=== PATIENT | female | born 1975 | race Caucasian/White ===

== ENCOUNTER 2016-04-17 19:27 | Emergency (ER) | payer SELFPAY ==
[~2016-04-17] VITALS: Wt 72.5 kg
[~2016-04-17 19:27] MED LIST: BACTDS PO; HYDR-906 PO; IBUP800T25 PO; ONDA4TAB8 PO
== END 2016-04-17 22:34 | disposition left against medical advice (07) ==
LOC: FTE 19:27
DX: Z53.21 Procedure and treatment not carried out due to patient leaving prior to being seen by health care provider (principal)

== ENCOUNTER 2016-07-26 16:32 | Emergency (ER) | payer OTHER ==
[~2016-07-26] VITALS: Ht 157.5 cm; Wt 72.5 kg
[2016-07-26 16:38] VITALS: Ht 157.5 cm; Wt 72.5 kg
[2016-07-26 19:24] LABS: URINE BLOOD (Dip) POC Trace-lysed (NEGATIVE)
[2016-07-26 19:40] LABS: URINE BLOOD (Dip) POC Trace-lysed (NEGATIVE)
[2016-07-26] MEDS ORDERED: PHEN-538 PO (19:44)
[2016-07-26] MEDS ORDERED: CEPH-443 PO (19:44)
--- NOTE | 2016-07-26 19:48 | ERD ---
ER Documentation Chief Complaint Date/Time DATE: 07/26/16 TIME: 19:47 Chief Complaint painful urination , fever , chills since yesterday HPI This 41-year-old female presents with dysuria and suprapubic abdominal pain and subjective tactile fevers and chills starting yesterday. She denies vomiting or flank pain. She has a history of frequent UTIs, last treated 2 months ago. She denies any localized abdominal pain to the right or left upper abdominal pain ROS All systems reviewed and are negative except as per history of present illness. Medications Home Meds Active Scripts Phenazopyridine Hcl* (Pyridium*) 200 Mg Tab, 200 MG PO TID Y for URINARY PAIN, # 6 TAB Prov:ISABEL SANDHU MD 07/26/16 Cephalexin* (Keflex*) 500 Mg Capsule, 500 MG PO QID for 7 Days, CAP Prov:ISABEL SANDHU MD 07/26/16 Ondansetron Hcl* (Zofran*) 4 Mg Tablet, 4 MG PO Q8H Y for NAUSEA AND/OR VOMITING , #10 TAB Prov:KATLIN BISHOP DO 02/24/16 Ibuprofen* (Motrin*) 800 Mg Tab, 800 MG PO Q8 Y for PAIN AND OR ELEVATED TEMP, # 30 TAB Prov:KATLIN BISHOP DO 02/24/16 Hydrocodone/Acetaminophen ([place] 5-325 Tablet) 1 Each Tablet, 1 TAB PO Q6H Y for PAIN, #7 TAB Prov:KATLIN BISHOP DO 02/24/16 Sulfamethoxazole-Trimethoprim* (Bactrim* DS) 800-160 Mg Tab, 1 TAB PO BID for 14 Days, TAB Prov:KATLIN BISHOP DO 02/24/16 Allergies Allergies: Coded Allergies: No Known Allergy (Unverified , 01/23/16) PMhx/Soc History of Surgery: Yes (bilateral breast implants, , right kidney stone removal) Anesthesia Reaction: No Hx Neurological Disorder: No Hx Respiratory Disorders: No Hx Cardiac Disorders: No Hx Psychiatric Problems: No Hx Miscellaneous Medical Probl: Yes (right kidney stone(2003), UTI) Hx Alcohol Use: No Hx Substance Use: No Hx Tobacco Use: No Smoking Status: Never smoker Physical Exam Vitals Vital Signs Date Time Temp Pulse Resp B/P Pulse Ox O2 Delivery O2 Flow Rate FiO2 07/26/16 16:38 97.8 81 16 125/78 99 Physical Exam Const: [] Alert, [id number]. Head: Atraumatic Eyes: Normal Conjunctiva ENT: Normal External Ears, Nose and Mouth. Neck: Full range of motion..~ No meningismus. Resp: Clear to auscultation bilaterally Cardio: Regular rate and rhythm, no murmurs Abd: Soft, non tender, non distended. Normal bowel sounds Skin: No petechiae or rashes Back: No midline or flank tenderness Ext: No cyanosis, or edema Neur: Awake and alert Psych: Normal Mood and Affect Results 24 hrs Laboratory Tests Test 07/26/16 19:25 07/26/16 19:41 Bedside Urine pH (LAB) 7.0 7.0 Bedside Urine Protein (LAB) 1+ 1+ Bedside Urine Glucose (UA) Negative Negative Bedside Urine Ketones (LAB) Negative Negative Bedside Urine Blood Trace-lysed Trace-lysed Bedside Urine Nitrite (LAB) Positive Positive Bedside Urine Leukocyte Esterase (L 3+ 3+ Current Medications Medications (Trade) Dose Ordered Sig/Dedrick Route PRN Reason Start Time Stop Time Status Last Admin Dose Admin Ceftriaxone Sodium (Rocephin) 1 gm ONCE ONCE IM 07/26/16 20:00 07/26/16 20:01 UNV Lidocaine (Xylocaine 1% (Mdv) 20 ml) 20 ml ONCE ONCE SC 07/26/16 20:00 07/26/16 20:01 UNV Ibuprofen (Motrin) 600 mg ONCE ONCE PO 07/26/16 20:00 07/26/16 20:01 UNV Phenazopyridine HCl (Pyridium) 200 mg ONCE ONCE PO 07/26/16 20:00 07/26/16 20:01 UNV Procedures/MDM Urine shows positive nitrates, leukocytes and hemoglobin. HCG is negative. Patient was given Rocephin 1 g IM. Patient presents with acute cystitis but given the chills possible subjective fever which treated with Keflex for 7 days and Pyridium instructions for fluids and ibuprofen. Patient shows no current signs of sepsis and should be amenable to outpatient treatment. She should however return for fevers, vomiting, flank pain, abdominal pain, new worsening symptoms. The patient was stable with no new complaints during the ER course. Clinically, there is no current evidence to suggest meningitis, sepsis, acute abdomen, pneumonia, acute coronary syndrome, pulmonary embolism, or any other emergent condition appearing to require further evaluation or hospitalization. The patient should certainly return for any new or worsening symptoms per the aftercare instructions. They should otherwise follow-up with her primary care doctor for reevaluation this week. Departure Diagnosis: Primary Impression: UTI (urinary tract infection) Urinary tract infection type: acute cystitis Hematuria presence: without hematuria Qualified Code: N30.00 - Acute cystitis without hematuria Condition: Stable Patient Instructions: Understanding Urinary Tract Infections (UTIs) Additional Instructions: Drink plenty of fluids at home. Recheck for fevers, vomiting, new worsening symptoms. ISABEL SANDHU MD July 26, 2016 19:48
[2016-07-26] MEDS ORDERED: PHENAZOPYRIDINE 100 MG TAB PO ONE (20:00)
[2016-07-26] MEDS ORDERED: IBUPROFEN 600 MG TAB PO ONE (20:00)
[2016-07-26] MEDS ORDERED: LIDOCAINE 1% (MDV) 20 ML INJ SC ONE (20:00)
[2016-07-26] MEDS ORDERED: CEFTRIAXONE 1 GM INJ IM ONE (20:00)
[2016-07-26 21:06] VITALS: BP 120/84; PULSE 78; RESP 18; TEMP 98.3
== END 2016-07-26 21:07 | disposition home or self-care (01) ==
LOC: FTE 16:32
DX: N30.00 Acute cystitis without hematuria (principal)
CPT/HCPCS: 81003; 87086; 96372; J0696; Z7502; Z7610

== ENCOUNTER 2016-08-25 13:49 | Emergency (ER) | payer OTHER ==
[~2016-08-25] VITALS: Ht 162.6 cm; Wt 73.0 kg
[~2016-08-25 13:49] MED LIST changes: +CEPH-443 PO; +PHEN-538 PO
[2016-08-25 14:01] VITALS: Ht 162.6 cm; Wt 73.0 kg
[2016-08-25 15:58] LABS: URINE BLOOD (Dip) POC Trace-intact (NEGATIVE)
[2016-08-25 16:34] LABS: ADD UMIC YES; URINE BILIRUBIN (Dip) NEGATIVE (NEGATIVE); URINE BLOOD (Dip) NEGATIVE (NEGATIVE); URINE GLUCOSE (Dip) NEGATIVE (NEGATIVE); URINE KETONES (Dip) NEGATIVE (NEGATIVE); URINE LEUKOCYTE ESTERASE (Dip) 1+ (NEGATIVE); URINE NITRITE (Dip) NEGATIVE (NEGATIVE); URINE TOTAL PROTEIN (Dip) NEGATIVE (NEGATIVE); URINE UROBILINOGEN (Dip) 0.2 E.U./dL (0.1-1.0)
[2016-08-25 16:35] LABS: URINE COLOR YELLOW (YELLOW)
[2016-08-25 16:45] LABS: BACTERIA,URINE FEW; SQUAMOUS EPITHELIAL CELL,UR MODERATE; URINE RBCS NONE SEEN /HPF (0)
[2016-08-25 18:08] LABS: CALCIUM 8.9 mg/dl (8.4-10.2); CREATININE 1.01 mg/dl (0.44-1.00); POTASSIUM 4.3 mmol/L (3.5-5.1)
[2016-08-25] MEDS ORDERED: TRAM50TA2 PO (18:29)
[2016-08-25] MEDS ORDERED: NITR-58 PO (18:29)
--- NOTE | 2016-08-25 18:41 | ERD ---
ER Documentation Chief Complaint Date/Time DATE: 08/25/16 TIME: 18:39 Chief Complaint PAINFUL URINATION, HPI This is a 41-year-old female complains of dysuria for 3 days. She complains of a burning sensation to the urethra and suprapubic area during the entire voiding process. There is some occasional back pressure when she urinates she says she has multiple kidney stones in the right kidney but no kidney stone attack the past 3 days. She says she was told that her right kidney function is only 20% in her left is normal. She has not checked her renal function in over 10 years. She has no hematuria no fever no nausea vomiting chest pain shortness of breath. ROS All systems reviewed and are negative except as per history of present illness. Medications Home Meds Active Scripts Tramadol HCl (Tramadol HCl) 50 Mg Tablet, 50 MG PO Q6, #20 TAB Prov:REBECCA BARLOW DO 08/25/16 Nitrofurantoin Monohyd Macrocr* (Macrobid*) 100 Mg Capsr, 100 MG PO BID for 14 Days, CAP Prov:REBECCA BARLOW DO 08/25/16 Phenazopyridine Hcl* (Pyridium*) 200 Mg Tab, 200 MG PO TID Y for URINARY PAIN, # 6 TAB Prov:ISABEL SANDHU MD 07/26/16 Cephalexin* (Keflex*) 500 Mg Capsule, 500 MG PO QID for 7 Days, CAP Prov:ISABEL SANDHU MD 07/26/16 Ondansetron Hcl* (Zofran*) 4 Mg Tablet, 4 MG PO Q8H Y for NAUSEA AND/OR VOMITING , #10 TAB Prov:KATLIN BISHOP DO 02/24/16 Ibuprofen* (Motrin*) 800 Mg Tab, 800 MG PO Q8 Y for PAIN AND OR ELEVATED TEMP, # 30 TAB Prov:KATLIN BISHOP DO 02/24/16 Hydrocodone/Acetaminophen ([place] 5-325 Tablet) 1 Each Tablet, 1 TAB PO Q6H Y for PAIN, #7 TAB Prov:KATLIN BISHOP DO 02/24/16 Sulfamethoxazole-Trimethoprim* (Bactrim* DS) 800-160 Mg Tab, 1 TAB PO BID for 14 Days, TAB Prov:KATLIN BISHOP DO 02/24/16 Allergies Allergies: Coded Allergies: No Known Allergy (Unverified , 07/26/16) PMhx/Soc History of Surgery: Yes (bilateral breast implants, , right kidney stone removal) Anesthesia Reaction: No Hx Neurological Disorder: No Hx Respiratory Disorders: No Hx Cardiac Disorders: No Hx Psychiatric Problems: No Hx Miscellaneous Medical Probl: Yes (right kidney stone(2004), UTI) Hx Alcohol Use: No Hx Substance Use: No Hx Tobacco Use: No Smoking Status: Never smoker FmHx Family History: No coronary disease Physical Exam Vitals Vital Signs Date Time Temp Pulse Resp B/P Pulse Ox O2 Delivery O2 Flow Rate FiO2 08/25/16 14:01 98.7 72 18 164/82 98 Physical Exam Const: Well-developed, well-nourished Head: Atraumatic, normocephalic Eyes: Normal Conjunctiva, PERRLA, EOMI, normal sclera, no nystagmus ENT: Normal External Ears, Nose and Mouth, moist mucus membranes. Neck: Full range of motion. No meningismus, no lymphadenopathy. Resp: Clear to auscultation bilaterally, no wheezing, rhonchi, rales Cardio: Regular rate and rhythm, no murmurs, S1 S2 present Abd: Soft, mild suprapubic tenderness, non distended. Normal bowel sounds, no guarding or rebound, no pulsitile abdominal masses or bruits Skin: No petechiae or rashes, no ecchymosis , no maculopapular rash Back: No midline or flank tenderness Ext: No cyanosis, or edema, FROM x 4, normal inspection, neurovascularly intact x 4 Neur: Awake and alert, STR 5/5 x 4, sensation intact x 4, no focal findings, cerebellum intact Psych: Normal Mood and Affect Result Diagram: 08/25/16 1730 Results 24 hrs Laboratory Tests Test 08/25/16 15:18 08/25/16 16:01 08/25/16 17:30 Urine Color YELLOW Urine Clarity CLOUDY Urine pH 7.5 Urine Specific [place] 1.015 Urine Ketones NEGATIVE Urine Nitrite NEGATIVE Urine Bilirubin NEGATIVE Urine Urobilinogen 0.2 E.U./dL Urine Leukocyte Esterase 1+ Urine Microscopic RBC NONE SEEN/HPF Urine Microscopic WBC 5-10/HPF Urine Squamous Epithelial Cells MODERATE Urine Amorphous Urates MANY Urine Bacteria FEW Urine Yeast OCCASIONAL Urine Hemoglobin NEGATIVE Urine Glucose NEGATIVE% Urine Total Protein NEGATIVE Bedside Urine pH (LAB) 7.5 Bedside Urine Protein (LAB) 1+ Bedside Urine Glucose (UA) Negative Bedside Urine Ketones (LAB) Negative Bedside Urine Blood Trace-intact Bedside Urine Nitrite (LAB) Negative Bedside Urine Leukocyte Esterase (L 1+ Sodium Level 142mmol/L Potassium Level 4.3mmol/L Chloride Level 107mmol/L Carbon Dioxide Level 26mmol/L Anion Gap 13 Blood Urea Nitrogen 23mg/dl Creatinine 1.01mg/dl Glucose Level 94mg/dl Calcium Level 8.9mg/dl Procedures/MDM Patient is urinary tract infection. Creatinine is 1.01. Will treat with Macrobid and Ultram will follow up with her primary Departure Diagnosis: Primary Impression: UTI (urinary tract infection) Urinary tract infection type: acute cystitis Hematuria presence: without hematuria Qualified Code: N30.00 - Acute cystitis without hematuria Condition: Stable Patient Instructions: Understanding Urinary Tract Infections (UTIs) REBECCA BARLOW DO Aug 25, 2016 18:41
== END 2016-08-25 19:29 | disposition home or self-care (01) ==
LOC: FTE 13:49
DX: N30.00 Acute cystitis without hematuria (principal)
CPT/HCPCS: 80048; 81001; Z7502; 81003; 99283

== ENCOUNTER 2016-11-04 15:58 | Emergency (ER) | END 2016-11-04 18:05 | disposition home or self-care (01) | DX: R30.0 Dysuria (principal) | CPT/HCPCS: 81003; Z7502; Z7610 ==

== ENCOUNTER 2016-11-16 18:06 | Emergency (ER) | payer OTHER ==
[~2016-11-16] VITALS: Ht 157.5 cm; Wt 73.0 kg
[~2016-11-16 18:06] MED LIST changes: +NITR-58 PO; +TRAM50TA2 PO
[2016-11-16 18:13] VITALS: Ht 157.5 cm; Wt 73.0 kg
[2016-11-16 19:58] LABS: URINE BLOOD (Dip) POC Negative (NEGATIVE)
[2016-11-16] MEDS ORDERED: CIPR500T4 PO (20:15)
[2016-11-16] MEDS ORDERED: PHEN-537 PO (20:15)
--- NOTE | 2016-11-16 23:24 | ERD ---
ER Documentation Chief Complaint Date/Time DATE: 11/16/16 TIME: 23:21 Chief Complaint PAINFUL URINATION , BLOOD IN URINE , RECENTLY RX FOR UTI HPI This patient is a 41-year-old female with past medical history of urinary tract infections, pyelonephritis, presenting to the emergency department with complaints of burning on urination for 10 days. Symptoms are worsening now. She finished her last antibiotic for UTI approximately 10 days ago. She has been drinking cranberry juice with mild relief of symptoms. She had an appointment recently with an [employer] physician who told her she may have mild bladder prolapse and this may be causing her repeated dysuria symptoms. She denies fevers, chills, abdominal pain, dizziness, chest pain, shortness breath, or other symptoms currently. ROS All systems reviewed and are negative except as per history of present illness. Medications Home Meds Active Scripts Phenazopyridine Hcl* (Pyridium*) 100 Mg Tab, 100 MG PO TID Y for URINARY PAIN, # 6 TAB Prov:DELLA AMBROCIO PA-C 11/16/16 Ciprofloxacin Hcl* (Ciprofloxacin Hcl*) 500 Mg Tablet, 500 MG PO BID for 7 Days , #14 TAB Prov:DELLA AMBROCIO PA-C 11/16/16 Phenazopyridine Hcl* (Pyridium*) 200 Mg Tab, 200 MG PO TID Y for URINARY PAIN, # 6 TAB Prov:ISABEL SANDHU MD 11/04/16 Cephalexin* (Keflex*) 500 Mg Capsule, 500 MG PO QID for 5 Days, CAP Prov:ISABEL SANDHU MD 11/04/16 Tramadol HCl (Tramadol HCl) 50 Mg Tablet, 50 MG PO Q6, #20 TAB Prov:REBECCA BARLOW DO 08/25/16 Nitrofurantoin Monohyd Macrocr* (Macrobid*) 100 Mg Capsr, 100 MG PO BID for 14 Days, CAP Prov:REBECCA BARLOW DO 08/25/16 Phenazopyridine Hcl* (Pyridium*) 200 Mg Tab, 200 MG PO TID Y for URINARY PAIN, # 6 TAB Prov:ISABEL SANDHU MD 07/26/16 Cephalexin* (Keflex*) 500 Mg Capsule, 500 MG PO QID for 7 Days, CAP Prov:ISABEL SANDHU MD 07/26/16 Ondansetron Hcl* (Zofran*) 4 Mg Tablet, 4 MG PO Q8H Y for NAUSEA AND/OR VOMITING , #10 TAB Prov:JAVIERKARINKATLIN 02/24/16 Ibuprofen* (Motrin*) 800 Mg Tab, 800 MG PO Q8 Y for PAIN AND OR ELEVATED TEMP, # 30 TAB Prov:EDNAHELENDACIA HARRELL 02/24/16 Hydrocodone/Acetaminophen ([place] 5-325 Tablet) 1 Each Tablet, 1 TAB PO Q6H Y for PAIN, #7 TAB Prov:JAVIERKARINHELENDACIA HARRELL 02/24/16 Sulfamethoxazole-Trimethoprim* (Bactrim* DS) 800-160 Mg Tab, 1 TAB PO BID for 14 Days, TAB Prov:JAVIERKARINHELENDACIA HARRELL 02/24/16 Allergies Allergies: Coded Allergies: No Known Allergy (Unverified , 11/04/16) PMhx/Soc History of Surgery: Yes (bilateral breast implants, , right kidney stone removal) Anesthesia Reaction: No Hx Neurological Disorder: No Hx Respiratory Disorders: No Hx Cardiac Disorders: No Hx Psychiatric Problems: No Hx Miscellaneous Medical Probl: Yes (right kidney stone(2003), UTI) Hx Alcohol Use: No Hx Substance Use: No Hx Tobacco Use: No Smoking Status: Never smoker Physical Exam Vitals Vital Signs Date Time Temp Pulse Resp B/P Pulse Ox O2 Delivery O2 Flow Rate FiO2 11/16/16 18:13 98.1 76 18 138/92 99 Physical Exam Const: Nontoxic, well-appearing female in no acute distress. Head: Atraumatic Eyes: Normal Conjunctiva ENT: Normal External Ears, Nose and Mouth. Neck: Full range of motion..~ No meningismus. Resp: No signs of respiratory distress. Abd: Soft, non tender, non distended. Normal bowel sounds Skin: No petechiae or rashes Back: No midline or flank tenderness. No CVA tenderness. Ext: No cyanosis, or edema Neur: Awake and alert Psych: Normal Mood and Affect Results 24 hrs Laboratory Tests Test 11/16/16 20:03 Bedside Urine pH (LAB) 5.5 Bedside Urine Protein (LAB) Trace Bedside Urine Glucose (UA) Negative Bedside Urine Ketones (LAB) Negative Bedside Urine Blood Negative Bedside Urine Nitrite (LAB) Negative Bedside Urine Leukocyte Esterase (L Negative Procedures/MDM 41-year-old female presenting for dysuria. Examination is benign. Urine dip shows no signs of infection, but did show trace proteinuria, which may be concerning for an early pyelonephritis. Given the patient's symptoms and significant past medical history of urinary tract infection and pyelonephritis, I will treat her as an outpatient with prescriptions for Pyridium and ciprofloxacin. The patient agreed with the discharge plan of diagnosis. Strict ER return precautions were discussed. Close follow-up with primary care physician was advised. At this time I doubt complicated urinary tract infection , complicated pyelonephritis, ascending urinary infection, sepsis, or other emergent conditions. Departure Diagnosis: Primary Impression: Dysuria Condition: Fair Patient Instructions: Dysuria Referrals: [facility] YOU HAVE RECEIVED A MEDICAL SCREENING EXAM AND THE RESULTS INDICATE THAT YOU DO NOT HAVE A CONDITION THAT REQUIRES URGENT TREATMENT IN THE EMERGENCY DEPARTMENT. FURTHER EVALUATION AND TREATMENT OF YOUR CONDITION CAN WAIT UNTIL YOU ARE SEEN IN YOUR DOCTORS OFFICE WITHIN THE NEXT 1-2 DAYS. IT IS YOUR RESPONSIBILITY TO MAKE AN APPOINTMENT FOR FOLOW-UP CARE. IF YOU HAVE A PRIMARY DOCTOR --you should call your primary doctor and schedule an appointment IF YOU DO NOT HAVE A PRIMARY DOCTOR YOU CAN CALL OUR PHYSICIAN REFERRAL HOTLINE AT IF YOU CAN NOT AFFORD TO SEE A PHYSICIAN YOU CAN CHOSE FROM THE FOLLOWING [facility] [address] [facility]. [facility] [address] [facility] [address] [facility] [facility] [address] [facility] [address] [facility] [facility]. [address] [employer] [employer] [place] [address] [facility] [address] [place] [address] OFFICE FAX LUISA RIVERA [address] [place] [address] [address] [address] [place] [address] MENA MILLER [address] [facility], [address] [address] MORALES URIARTE [address] [facility], [place] [address] [facility] [address] [place] [address] [address] [facility], [facility] [address] - [place] [address] [place] [address] [address] CANDELARIO, [place] [address] [facility]. [address], [place] [address] [address] DELEON [facility] [address] [place] [address] Additional Instructions: Follow up with your PCP within the next 1-3 days for a repeat evaluation. If you require a referral to a specialist, your Primary Care Provider may be able to provide this for you. In most patient cases, a referral is not required. If you have further questions regarding this matter, please ask your Primary Care Provider. Return the the emergency department immediately if symptoms worsen or change. If you have any questions regarding medications, ask your pharmacist or us before you leave. If any adverse reactions, occur while taking your medications, discontinue the treatment and return to the emergency department immediately. If any new or worsening symptoms, uncontrolled fevers, or other unexplained symptoms occur, return to the emergency department immediately. Take your medications as directed, and complete the entire course of treatment. DELLA AMBROCIO PA-C Nov 16, 2016 23:19
== END 2016-11-16 20:29 | disposition home or self-care (01) ==
LOC: FTE 18:06
DX: R30.0 Dysuria (principal)
CPT/HCPCS: 81003; Z7502; 99283

== ENCOUNTER 2017-01-22 19:06 | Emergency (ER) | payer SELFPAY ==
[~2017-01-22 19:06] MED LIST changes: +CIPR500T4 PO; +PHEN-537 PO
== END 2017-01-22 19:40 | disposition left against medical advice (07) ==
LOC: E/R 19:06
DX: Z53.21 Procedure and treatment not carried out due to patient leaving prior to being seen by health care provider (principal)

== ENCOUNTER 2017-05-07 11:26 | Emergency (ER) | END 2017-05-07 15:31 | disposition home or self-care (01) ==